=== PATIENT | male | born 2000 | race Two or more races ===

== ENCOUNTER 2024-10-12 01:09 | Emergency (ER) | payer MEDICAID, SELFPAY ==
[2024-10-12 01:13] VITALS: BP 162/101; PULSE 142; RESP 20; O2SAT 97
[2024-10-12 01:14] VITALS: BMI 29.7
[2024-10-12 01:24] VITALS: BP 168/80
--- NOTE | 2024-10-12 01:33 | EDNOTE_ITS ---
ED Medical Clearance RME/HPI General Chief complaint: Medical Clearance Stated complaint: MEDICAL CLEARANCE Time Seen by Provider: 10/12/24 01:33 Arrival date/time: 10/12/24 01:09 RME / HPI RME / HPI Narrative: Dr. Edmonds?s Main ED Evaluation: 24yo male presents for medical clearance. Notably hypertensive at [facility]. Patient denies history of HTN, headaches, chest pain, or shortness of breath. PMH and PSH unremarkable. Related Information Allergies Allergy/AdvReac Type Severity Reaction Status Date / Time No Known Allergies Allergy Mild Uncoded 06/16/07 12:36 Review of Systems Review of Systems Systems Reviewed: All systems reviewed, normal except as documented ED Exam Narrative Physical exam: GENERAL APPEARANCE: alert and oriented x 4, mildly hypertensive, no acute distress VITALS: All vitals were reviewed and the pulse ox is 96% on room air, which is normal according to my interpretation. HEENT: normocephalic, atraumatic NECK: supple LUNGS: no respiratory distress, normal effort HEART: good peripheral perfusion, mildly tachycardic ABDOMEN: non distended EXTREMITIES: atraumatic NEUROLOGIC: awake; alert and oriented x4; cranial nerves II-XII grossly intact PSYCHIATRIC: agitated, pressured speech SKIN: warm, dry, normal color; no rashes Course Quality Measures none Orders Category Date Time Status TET,DIP/PERT AC (Adult)-Tdap [Boostrix Adult (Tdap) Med 10/12/24 01:47 Discontinued Vacc] 0.5 ml IMI .ONCE ONE Vital Signs Vital signs: Vital Signs Pulse Rate 142 H 10/12/24 01:13 Respiratory Rate 20 10/12/24 01:13 Blood Pressure 162/101 H 10/12/24 01:13 Pulse Oximetry (%) 97 10/12/24 01:13 Oxygen Delivery Method Room Air 10/12/24 01:13 Medical Clearance MDM Narrative MDM Narrative:: Scribe Attestation: 10/12/24 Yin Cisneros am scribing for and in the presence of Dr. Edmonds. 24yo male presents for medical clearance. Notably hypertensive at [facility]. Please see PE findings. Patient clinically intoxicated, tending to ramble, and has elevated blood pressure likely due to adrenergic discharge. After period of observation, blood pressure is trending down and patient is medically clear. Patient discharged into custody of police. No medication therapies at this time. Patient data External records reviewed:: [facility] previous records (Per chart review, patient has no previous ED visits or admissions to this facility.) Clinical information provided by:: patient and law enforcement Social determinants that could affect healthcare access:: none Patient has the following chronic illnesses:: none How is presenting disease/condition affected by chronic disease/condition?: no chronic disease Evaluation data The following diagnostics were reviewed and interpreted by me:: other (specify) (none) Lab and/or radiology exams considered but not ordered:: none Interpretation Summary: none Medications / Prescriptions Medications or Prescriptions considered but not ordered:: none Medication administrations:: Medication Administration History Discontinued Medications Diphtheria/Tetanus/Acell Pertussis (Diphth,Pertuss(Acell),Tet Vac 0.5 Ml Syr- Adult) 0.5 ml IMi .ONCE ONE Stop: 10/12/24 01:48 Last Admin: 10/12/24 01:55 Dose: Not Given Documented By: SF Non-Admin Reason: Not Given Comments: Wrong PT entered by PRovider none Consultations Consultation(s) initiated? (list below): No Diagnosis Medical Clearance Differential Diagnosis: other (alcohol intoxication, drug use, encounter for medical screening) Most likely diagnosis given after review of the tests above:: see clinical impression below Admission Indicated Admission indicated?: not indicated Admission Request Was there a request for admission?: No Disposition Plan Disposition Plan: Discharge Discharge Attestation Discharge Attestation: The patient and all family members were given an opportunity to ask questions and understood the discharge instructions. Discharge instructions specifically effects, indications for sooner follow up or return to the emergency department, and the expected course of current diagnosis. Patient condition: Stable Discharge Plan Plan Patient Disposition: Alf/Court/Law Discharge Disposition comment: Stable Problem List Clinical Impression: Elevated blood pressure reading without diagnosis of hypertension, Alcohol intoxication Patient/Caregiver Discharge Instructions Education Materials: Checking Your Own Blood Pressure, ED Alcohol Intoxication Additional Instructions: Monitor blood pressure twice daily for 1 week and follow-up with primary care doctor. Return for escalating headaches chest pain or shortness of breath. Print Language: Tajik
[2024-10-12 01:36] VITALS: BMI 22.3
--- NOTE | 2024-10-12 01:40 | PC.NURSE ---
pt refuses to answer many of the triage questions. per pt i have the write to refuse . pt states my rights were not read, my handcuffs are too tight .
[2024-10-12 02:11] VITALS: BP 145/95; PULSE 130; RESP 19; O2SAT 96
== END 2024-10-12 02:27 ==
LOC: SERX 03:36
PROVIDERS: Emergency Provider Emergency Medicine
DX: Z02.89 Encounter for other administrative examinations (principal); F10.129 Alcohol abuse with intoxication, unspecified; I10 Essential (primary) hypertension
CPT/HCPCS: 99282